=== PATIENT | male | born 1965 | race Two or more races ===

== ENCOUNTER 2016-11-11 21:07 | Emergency (ER) | payer MEDICAID ==
[~2016-11-11] VITALS: Ht 172.7 cm; Wt 68.1 kg
[2016-11-11 21:10] VITALS: BP 120/78
[2016-11-11] MEDS ORDERED: LIDOCAINE 1%, 20ML ONE (21:28)
== END 2016-11-11 22:18 | disposition home or self-care (01) ==
LOC: ED 22:14
DX: L03.114 Cellulitis of left upper limb (principal); L02.412 Cutaneous abscess of left axilla; Z87.891 Personal history of nicotine dependence
CPT/HCPCS: 10060

== ENCOUNTER 2016-11-13 12:53 | Emergency (ER) | payer MEDICAID ==
[~2016-11-13] VITALS: Ht 167.6 cm; Wt 69.7 kg
[2016-11-13 12:59] VITALS: BP 123/80
== END 2016-11-13 14:00 | disposition home or self-care (01) ==
LOC: ED 13:45
DX: L02.412 Cutaneous abscess of left axilla (principal)
CPT/HCPCS: 99281; 99282

== ENCOUNTER 2016-12-03 18:21 | Emergency (ER) | payer MEDICAID ==
[~2016-12-03] VITALS: Ht 167.6 cm; Wt 73.3 kg
[2016-12-03 18:24] VITALS: BP 137/88
== END 2016-12-03 19:05 | disposition home or self-care (01) ==
LOC: ED 18:50
DX: L02.211 Cutaneous abscess of abdominal wall (principal)
CPT/HCPCS: 10060